=== PATIENT | male | born 1960 | race Caucasian/White ===

== ENCOUNTER 2017-07-29 09:44 | Emergency (ER) | payer OTHER ==
[2017-07-29 09:53] VITALS: BP 155/83
[2017-07-29] MEDS ORDERED: Colchicine 0.6 MG Tab PO ONE (10:20)
[2017-07-29] MEDS ORDERED: Acetaminophen/oxyCODONE 325-5 MG Tab PO ONE (10:21)
[2017-07-29] MEDS ORDERED: predniSONE 20 MG Tab PO ONE (10:21)
[2017-07-29] MEDS ORDERED: Indomethacin 25 MG Cap PO ONE (10:21)
--- NOTE | 2017-07-29 10:27 | EDM.PDOC ---
ED HPI GENERAL MEDICAL PROBLEM - General Chief Complaint: Lower Extremity Injury/Pain Stated Complaint: LEFT KNEE PAIN Time Seen by Provider: 07/29/17 10:15 Source of Information: Reports: Patient, Family History Limitations: Reports: No Limitations - History of Present Illness INITIAL COMMENTS - FREE TEXT/NARRATIVE: 56-year-old male presents the ED with acute onset of severe left knee pain that awoke him from sleep during the night. When he went to bed he felt fine and reports no known trauma or injuries to the knee. Patient is known to have mild to moderate degenerative arthritis in both knees. No previous similar problems. He states it's not bad if he's not moving but if he tries to weight-bear or move the joint it hurts tremendously. Onset: Today Onset Date: 07/29/17 Onset Time: 05:00 Duration: Hour(s): Location: Reports: Lower Extremity, Left Quality: Reports: Ache, Burning Severity: Moderate (Current pain as 7 or 8 out of 10.) Improves with: Reports: None Worsens with: Reports: Movement Context: Denies: Activity (Especially trying to weight-bear), Exercise, Lifting , Sick Contact, Trauma, Other Associated Symptoms: Reports: No Other Symptoms Treatments [employer]: Reports: Acetaminophen Left Knee Pain Score (Numeric/FACES): 1 - Related Data Allergies Allergy/AdvReac Type Severity Reaction Status Date / Time erythromycin base Allergy Hives Verified 07/29/17 09:49 niacin Allergy Itching Verified 07/29/17 09:49 [From Niaspan Extended-Release] atorvastatin [From Lipitor] AdvReac Muscle Verified 07/29/17 09:49 Weakness Home Meds: Home Meds Acetaminophen [Tylenol] 2 tab PO Q6HR PRN 08/08/16 [History] Aspirin [Halfprin] 1 tab PO DAILY 08/08/16 [History] Cholecalciferol (Vitamin D3) [Vitamin D3] 1 tab PO DAILY 08/08/16 [History] Hydrochlorothiazide 1 tab PO DAILY 08/08/16 [History] Insulin Glargine,Hum.Rec.Anlog [Susana Solostbritany] 45 units SQ BEDTIME 08/08/16 [ History] Losartan [Cozaar] 1 tab PO DAILY 08/08/16 [History] Metoprolol Succinate 1 tab PO DAILY 12/20/16 [History] Rosuvastatin Calcium 1 tab PO DAILY 08/08/16 [History] Ubidecarenone [Coq-10] 1 cap PO DAILY 08/08/16 [History] sitaGLIPtin Phos/Metformin HCl [Janumet Xr 50-1,000 mg Tablet] 1 tab PO DAILY [History] Diclofenac Sodium [Voltaren] 50 mg PO TIDMEALS #24 tab.ec 07/29/17 [Rx] Prednisone [IMW: predniSONE] 20 mg PO BID #11 tab 07/29/17 [Rx] oxyCODONE HCl/Acetaminophen [Percocet 5-325 mg Tablet] 1 - 2 each PO Q4H PRN # 16 tablet 07/29/17 [Rx] Past Medical History HEENT History: Reports: Other (See Below) Other HEENT History: nasal obstruction Cardiovascular History: Reports: CAD, High Cholesterol, Hypertension, ID, PTCA Respiratory History: Reports: Sleep Apnea Musculoskeletal History: Reports: Other (See Below) Other Musculoskeletal History: L sciatic pain Endocrine/Metabolic History: Reports: Diabetes, Type II (Controlled with insulin and diet), Obesity/BMI 30+ - Past Surgical History HEENT Surgical History: Reports: Cataract Surgery, Other (See Below) GI Surgical History: Reports: Hernia, Inguinal Social & Family History - Tobacco Use Smoking Status *Q: Former Smoker Used Tobacco, but Quit: No - Recreational Drug Use Recreational Drug Use: No Drug Use in Last 12 Months: No - Living Situation & Occupation Living situation: Reports: Occupation: Employed Review of Systems - Review of Systems Review Of Systems: See Below Constitutional: Reports: No Symptoms Eyes: Reports: No Symptoms Ears: Reports: No Symptoms Nose: Reports: No Symptoms Mouth/Throat: Reports: No Symptoms Respiratory: Reports: No Symptoms Cardiovascular: Reports: No Symptoms, Other (Shortness of breath on exertion.) GI/Abdominal: Reports: Other (Moderate abdominal obesity) Genitourinary: Reports: Other (Urinary frequency with nocturia 3) Musculoskeletal: Reports: Joint Pain Skin: Reports: No Symptoms (Both knees. Left greater than right today.) Neurological: Reports: No Symptoms Psychiatric: Reports: No Symptoms ED EXAM, GENERAL - Physical Exam Exam: See Below Exam Limited By: No Limitations General Appearance: Alert, WD/WN, No Apparent Distress Extremities: Other (Examination of the left knee reveals no true joint effusion. It is slightly swollen laterally. It is very warm to palpation along the lateral aspect of the knee. Movement causes severe pain in any direction. A flexion-extension internal or external rotation. Assessment is acute gouty arthritis or pseudogout.) Psychiatric: Normal Affect Skin Exam: Warm, Dry, Intact, Normal Color, No Rash Course - Vital Signs Last Recorded V/S: Last Vital Signs Temp 36.5 C 07/29/17 09:50 Pulse 80 07/29/17 09:50 Resp BP 155/83 H 07/29/17 09:50 Pulse Ox 95 07/29/17 09:50 - Orders/Labs/Meds Orders: Active Orders 24 hr Category Date Time Status Colchicine [Colcrys] Med 07/29/17 10:30 Active 0.6 mg PO Q1H Medication Orders Colchicine (Colcrys) 0.6 mg PO Q1H LUL Last Admin: 07/29/17 10:37 Dose: 0.6 mg Meds: Medications Generic Name Dose Route Start Last Admin Trade Name Freq PRN Reason Stop Dose Admin Colchicine 0.6 mg 07/29/17 10:30 07/29/17 10:37 Colcrys PO 0.6 mg Q1H LUL Administration Discontinued Medications Generic Name Dose Route Start Last Admin Trade Name Freq PRN Reason Stop Dose Admin Colchicine 0.6 mg 07/29/17 10:20 07/29/17 10:29 Colcrys PO 07/29/17 10:21 0.6 mg ONETIME ONE Administration Indomethacin 50 mg 07/29/17 10:21 07/29/17 10:29 Indocin PO 07/29/17 10:22 50 mg ONETIME ONE Administration Oxycodone/Acetaminophen 2 tab 07/29/17 10:21 07/29/17 10:30 Percocet 325-5 Mg PO 07/29/17 10:22 2 tab ONETIME ONE Administration Prednisone 30 mg 07/29/17 10:21 07/29/17 10:30 Prednisone PO 07/29/17 10:22 30 mg ONETIME ONE Administration - Radiology Interpretation Free Text/Narrative:: 56-year-old male presents to the ED with acute onset of severe left knee pain that started during the night with known with known injuries. Examination reveals increased warmth and tenderness along the lateral aspect of the knee area clinically he has developed either pseudogout or gout deposition in his knee. Patient is obese and suffers from metabolic syndrome. Advised he needs a uric acid checked next time is in the clinic. In the meantime he will be treated with colchicine 0.6 mg 1 every hour for 3 consecutive hours starting in the ED. 3 tablets were provided through the ED. Given indomethacin 50 mg by mouth for anti-inflammatory. Prednisone 30 mg by mouth into Percocet 5/3/25 milligram tablets for acute pain relief. He will go to the drugstore and excelsior picker prednisone 20 mg twice a day with first dose due tonight at supper time and he will use this for 5 days. Placed on Voltaren 50 mg 3 times daily for 8 days to relieve pain and inflammation. Percocet 5/3/25 milligram tablets 16 were provided for pain relief to get him through the next few days until the inflammation comes under control. Follow-up if not markedly improved in 48 hours time Departure - Departure Time of Disposition: 10:22 Disposition: Home, Self-Care 01 Condition: Fair Clinical Impression: Gout attack Qualifiers: Gout site: knee Gout etiology: idiopathic Laterality: left Qualified Code(s): M10.062 - Idiopathic gout, left knee - Discharge Information Prescriptions: Diclofenac Sodium [Voltaren] 50 mg PO TIDMEALS #24 tab.ec oxyCODONE HCl/Acetaminophen [Percocet 5-325 mg Tablet] 1 - 2 each PO Q4H PRN # 16 tablet PRN Reason: pain relief. Prednisone [IMW: predniSONE] 20 mg PO BID #11 tab Instructions: Gout, [id number] Referrals: Ester Shook PA-C [Primary Care Provider] - Forms: ED Department Discharge Additional Instructions: Evaluation in the emergency room this morning in regards to acute onset of severe pain left knee that developed during the night. No known trauma or injury. Examination reveals increased warmth and with signs of inflammation of the lateral aspect of the left knee joint. History and examination are compatible with acute gout attack. Treatment is colchicine 0.6 mg tablet 1 tablet every hour for 3 consecutive hours with the first tablets started in the ED. Next tablet would be due around 11:30 and again at 12:30 today. Indomethacin 50 mg was given in the ED to reduce inflammation. He will need to start Voltaren 50 mg 3 times daily x 8 days with the next tablet due about suppertime tonight. Prednisone 30 mg started in the ED and need to take 20 mg again after supper tonight. This be taken twice daily for the next 5 days again to clear up inflammation. Pain medication Percocet 12/20/24 one or 2 tablets every 4-6 hours needed for pain relief. You should only need this for the next couple of days as the anti-inflammatories will take about 36 hours to kick in well and should relieve over 90% of your pain early rapidly in the next 36 hours. Time urine to see the document major uric acid level checked in your bloodstream. - My Orders Last 24 Hours: My Active Orders 07/29/17 10:30 Colchicine [Colcrys] 0.6 mg PO Q1H - Assessment/Plan Last 24 Hours: My Active Orders 07/29/17 10:30 Colchicine [Colcrys] 0.6 mg PO Q1H
[2017-07-29] MEDS ORDERED: Colchicine 0.6 MG Tab PO SCH (10:30)
== END 2017-07-29 10:40 | disposition home or self-care (01) ==
LOC: JD.ED 09:44
DX: M10.062 Idiopathic gout, left knee (principal); E78.00 Pure hypercholesterolemia, unspecified; I10 Essential (primary) hypertension; Z88.1 Allergy status to other antibiotic agents; Z88.8 Allergy status to other drugs, medicaments and biological substances; Z79.82 Long term (current) use of aspirin; Z79.4 Long term (current) use of insulin; Z79.899 Other long term (current) drug therapy; Z87.891 Personal history of nicotine dependence
CPT/HCPCS: 99283; A9270

== ENCOUNTER 2019-05-10 01:19 | Emergency (ER) | payer OTHER ==
[2019-05-10 01:32] VITALS: BP 151/85; PULSE 82
--- NOTE | 2019-05-10 02:10 | EDM.PDOC ---
ED HPI GENERAL MEDICAL PROBLEM - General Chief Complaint: Lower Extremity Injury/Pain Stated Complaint: SWOLLEN RIGHT HIP Time Seen by Provider: 05/10/19 01:32 Source of Information: Reports: Patient, Family () History Limitations: Reports: No Limitations - History of Present Illness INITIAL COMMENTS - FREE TEXT/NARRATIVE: The patient states that he developed pain to the lateral aspect of his right hip yesterday morning, 05/09/2019. It has progressively gotten worse. Patient is unable to lie on his right side, and he states that it hurts to move his right hip. He denies any injury to the area. No recent fever. No prior similar symptoms. The patient is concerned that his right hip pain may be a gout flare. He has a presumptive diagnosis of gout, although he has only had 2 prior flares; the first to his first MTP, the second to his knee, however, aspiration of either joint was not performed, therefore the diagnosis has not been confirmed. The patient does not take a urea-lowering medication. The patient's PCP is CHINEDU Andersen. His Metal Riveter is Dr. Aron Vazquez. His Orthopedic Surgeon is Dr. Alejandro Fletcher. Right Hip Pain Score (Numeric/FACES): 6 - Related Data Allergies Allergy/AdvReac Type Severity Reaction Status Date / Time erythromycin base Allergy Hives Verified 05/10/19 01:35 niacin Allergy Itching Verified 05/10/19 01:35 [From Niaspan Extended-Release] atorvastatin [From Lipitor] AdvReac Muscle Verified 05/10/19 01:35 Weakness Home Meds: Home Meds Aspirin [Halfprin] 1 tab PO DAILY 08/08/16 [History] Cholecalciferol (Vitamin D3) [Vitamin D3] 1 tab PO DAILY 08/08/16 [History] Hydrochlorothiazide 1 tab PO DAILY 08/08/16 [History] Insulin Glargine,Hum.Rec.Anlog [Toujeo Solostar] 45 units SQ BEDTIME 08/08/16 [ History] Losartan [Cozaar] 1 tab PO DAILY 08/08/16 [History] Metoprolol Succinate 1 tab PO DAILY 08/08/16 [History] Rosuvastatin Calcium 1 tab PO DAILY 08/08/16 [History] Ubidecarenone [Coq-10] 1 cap PO DAILY 08/08/16 [History] sitaGLIPtin Phos/Metformin HCl [Janumet Xr 50-1,000 mg Tablet] 1 tab PO DAILY [History] Past Medical History Cardiovascular History: Reports: CAD, High Cholesterol, Hypertension, [place] (2003) Respiratory History: Reports: Sleep Apnea (nightly CPAP 10) Musculoskeletal History: Reports: Fracture (left ankle), Gout (suspected, not confirmed, untreated), Osteoarthritis (knees) Endocrine/Metabolic History: Reports: Diabetes, Type II, Obesity/BMI 30+ - Past Surgical History HEENT Surgical History: Reports: Cataract Surgery (bilateral) Cardiovascular Surgical History: Reports: Percutaneous Transluminal Angioplasty (coronary, 2003) GI Surgical History: Reports: Hernia, Inguinal (bilateral) Social & Family History - Tobacco Use Smoking Status *Q: Never Smoker - Caffeine Use Caffeine Use: Reports: None - Alcohol Use Alcohol Use History: Yes Alcohol Use Frequency: Socially - Recreational Drug Use Recreational Drug Use: No - Living Situation & Occupation Living situation: Reports: , with Spouse, with Family (1 child) 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 ED EXAM, GENERAL - Physical Exam Exam: See Below Exam Limited By: No Limitations General Appearance: Alert, WD/WN, No Apparent Distress Extremities: Other (Producible tenderness over the right greater trochanter. No tenderness to palpation to the remainder of the right hip.) Course - Vital Signs Last Recorded V/S: Last Vital Signs Temp 36.4 C 05/10/19 01:29 Pulse 82 05/10/19 01:29 Resp 19 05/10/19 01:29 BP 151/85 H 05/10/19 01:29 Pulse Ox 93 L 05/10/19 01:29 - Re-Assessments/Exams Free Text/Narrative Re-Assessment/Exam: 05/10/19 02:05 The patient's history and physical examination are most consistent with greater trochanteric pain syndrome (formerly known as trochanteric bursitis). Since the patient reports no history of trauma, I do not see an indication for x-rays. Treatment options at this time include NSAIDs versus systemic steroids, however , given the patient's history of diabetes, I feel that NSAIDs would be safer, as a systemic steroid would cause his blood glucoses to rise. An alternative treatment would be to have his Orthopedic Surgeon perform a local steroid injection, which would likely give him more prompt relief. If the patient's pain is not improving fairly rapidly, physical therapy is in order. Departure - Departure Time of Disposition: 02:07 Disposition: Home, Self-Care 01 Condition: Good Clinical Impression: Greater trochanteric pain syndrome of right lower extremity - Discharge Information *PRESCRIPTION DRUG MONITORING PROGRAM REVIEWED*: Not Applicable *COPY OF PRESCRIPTION DRUG MONITORING REPORT IN PATIENT SOFI: Not Applicable Referrals: Ester Shook PA-C [Primary Care Provider] - Aron Vazquez MD [Ordering Only Provider] - Alejandro Fletcher MD [Ordering Only Provider] - Additional Instructions: You were seen in the emergency room for pain to the side of your right hip that developed Sunday morning, 05/09/2019. Based on your history and physical examination, you are most likely suffering from greater trochanteric pain syndrome, formally known as trochanteric bursitis. One option is to take an [id number] NSAID, such as ibuprofen, the other option is to take a systemic steroid, however, a systemic steroid will cause your blood sugars to rise. Take [id number] ibuprofen, 3 tablets (600 mg) every 8 hours, with food, [id number]. If you are not getting significant relief within the next few days, please follow-up with your Orthopedic Surgeon, Dr. Alejandro Fletcher, to discuss the option of a local steroid injection into your right greater trochanteric bursa. If you are not having significant relief within a week or so, physical therapy is recommended. If any other problems, please do not hesitate to return to the ER.
== END 2019-05-10 02:20 | disposition home or self-care (01) ==
LOC: JD.ED 01:19
DX: M25.551 Pain in right hip (principal); M79.604 Pain in right leg; E78.00 Pure hypercholesterolemia, unspecified; E11.9 Type 2 diabetes mellitus without complications; I10 Essential (primary) hypertension; I25.2 Old myocardial infarction; E66.9 Obesity, unspecified; Z79.82 Long term (current) use of aspirin; Z79.899 Other long term (current) drug therapy; Z79.4 Long term (current) use of insulin; Z88.1 Allergy status to other antibiotic agents; Z88.8 Allergy status to other drugs, medicaments and biological substances; Z68.42 Body mass index [BMI] 45.0-49.9, adult
CPT/HCPCS: 99283

== ENCOUNTER 2019-09-01 11:00 | Emergency (ER) | payer OTHER ==
[2019-09-01 11:13] VITALS: BP 123/64; PULSE 76
--- NOTE | 2019-09-01 13:03 | CT ---
Head CT Technique: Multiple axial sections through the brain were obtained. Intravenous contrast was not utilized. Comparison: Prior MRI brain of 04/15/13. Findings: Ventricles along with basal cisterns and sulci over the convexities are within normal limits for the patient's age. Questionable diminished density within the middle cerebral artery peduncle on the left side. Difficult to exclude early infarct or ischemic demyelination. No other abnormal parenchymal densities are seen. No evidence of intracranial hemorrhage. No midline shift or mass effect is seen. Bone window settings were reviewed which show no acute disease within the visualized paranasal sinuses. Mastoid sinuses also show nothing acute. Atherosclerotic calcification is seen within the carotid siphon. No acute calvarial abnormality is appreciated. Impression: 1. Questionable low density within the left middle cerebral artery peduncle. Difficult to exclude early infarct or ischemic demyelination. MRI would be confirmatory if needed. 2. No other acute findings are seen on noncontrast head CT study. Diagnostic code #3 This report was dictated in [place] Standard Time
[2019-09-01] MEDS ORDERED: LORazepam 1 MG Tab PO ONE (13:31)
--- NOTE | 2019-09-01 14:06 | EDM.PDOC ---
ED HPI GENERAL MEDICAL PROBLEM - General Chief Complaint: Cardiovascular Problem Stated Complaint: DIZZY Time Seen by Provider: 09/01/19 11:11 Source of Information: Reports: Patient, Family History Limitations: Reports: No Limitations - History of Present Illness INITIAL COMMENTS - FREE TEXT/NARRATIVE: The patient presents with dizziness and lightheadedness. He was at [employer] and he developed some dizziness. He said this felt both like being off balance and lightheaded. He said this did happen once about a week ago. He has no headache, fever, chills, chest pain, abdominal pain or vomiting. He did feel a little nauseated. He has no numbness or weakness. He has no double or blurred vision. He has no ear pain, tinnitus or hearing loss. Onset: Sudden Duration: Minutes: Severity: Moderate Improves with: Reports: None Worsens with: Reports: None Associated Symptoms: Reports: Nausea/Vomiting. Denies: Chest Pain, Cough, Fever /Chills, Headaches, Shortness of Breath - Related Data Allergies Allergy/AdvReac Type Severity Reaction Status Date / Time erythromycin base Allergy Hives Verified 09/01/19 11:13 niacin Allergy Itching Verified 09/01/19 11:13 [From Niaspan Extended-Release] atorvastatin [From Lipitor] AdvReac Muscle Verified 09/01/19 11:13 Weakness Home Meds: Home Meds Aspirin [Halfprin] 1 tab PO DAILY 08/08/16 [History] Cholecalciferol (Vitamin D3) [Vitamin D3] 1 tab PO DAILY 08/08/16 [History] Hydrochlorothiazide 25 mg PO DAILY 08/08/16 [History] Insulin Glargine,Hum.Rec.Anlog [Susana Melo] 56 units SQ BEDTIME 08/08/16 [ History] Losartan [Cozaar] 100 mg PO DAILY 08/08/16 [History] Metoprolol Succinate 100 mg PO DAILY 08/08/16 [History] Rosuvastatin Calcium 40 mg PO DAILY 08/08/16 [History] Ubidecarenone [Coq-10] 60 mg PO DAILY 08/08/16 [History] sitaGLIPtin Phos/Metformin HCl [Janumet Xr 50-1,000 mg Tablet] 1 tab PO BID [History] Meclizine [Antivert] 25 mg PO Q6H PRN #30 tab 01/13/20 [Rx] Past Medical History HEENT History: Reports: Other (See Below) Other HEENT History: nasal obstruction Cardiovascular History: Reports: CAD, High Cholesterol, Hypertension, [place] Respiratory History: Reports: Sleep Apnea Musculoskeletal History: Reports: Fracture, Gout, Osteoarthritis Other Musculoskeletal History: L sciatic pain Endocrine/Metabolic History: Reports: Diabetes, Type II, Obesity/BMI 30+ - Past Surgical History HEENT Surgical History: Reports: Cataract Surgery Cardiovascular Surgical History: Reports: Percutaneous Transluminal Angioplasty GI Surgical History: Reports: Hernia, Inguinal Social & Family History - Tobacco Use Smoking Status *Q: Never Smoker - Caffeine Use Caffeine Use: Reports: None - Recreational Drug Use Recreational Drug Use: No - Living Situation & Occupation Living situation: Reports: , with Spouse, with Family (1 child) 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 Denies: Abdominal Pain, Vomiting : Reports: No Symptoms Musculoskeletal: Reports: No Symptoms Neurological: Reports: Dizziness. Denies: Headache, Numbness, Weakness ED EXAM, GENERAL - Physical Exam Exam: See Below Exam Limited By: No Limitations General Appearance: Alert, No Apparent Distress Eye Exam: Bilateral Eye: Nystagmus Ears: Normal External Exam, Normal Canal, Normal TMs Nose: Normal Inspection Head: Atraumatic, Normocephalic Neck: Normal Inspection Respiratory/Chest: No Respiratory Distress, Lungs Clear, Normal Breath Sounds Cardiovascular: Regular Rate, Rhythm, No Edema, No Murmur GI/Abdominal: Soft, Non-Tender, No Organomegaly, No Mass Back Exam: Normal Inspection Extremities: Normal Inspection Neurological: Alert, Oriented, No Motor/Sensory Deficits EKG INTERPRETATION EKG Date: 09/01/19 Time: 11:32 Rhythm: NSR Rate (Beats/Min): 71 P-Wave: Present QRS: Normal ST-T: Other (Inverted T waves in the inferior leads) QT: Normal Course - Vital Signs Last Recorded V/S: Last Vital Signs Temp 96.7 F 09/01/19 11:08 Pulse 76 09/01/19 11:08 Resp 18 09/01/19 11:08 BP 123/64 09/01/19 11:08 Pulse Ox 95 09/01/19 11:08 - Orders/Labs/Meds Orders: Active Orders 24 hr Category Date Time Status Cardiac Monitoring [RC] . DIRECTED Care 09/01/19 11:23 Active EKG Documentation Completion [RC] STAT Care 09/01/19 11:24 Active Labs: Laboratory Tests 09/01/19 09/01/19 Range/Units 11:39 11:39 WBC 9.69 H (4.23-9.07) K/mm3 RBC 4.98 (4.63-6.08) M/mm3 Hgb 13.8 (13.7-17.5) gm/dl Hct 42.5 (40.1-51.0) % MCV 85.3 (79.0-92.2) fl MCH 27.7 (25.7-32.2) pg MCHC 32.5 (32.2-35.5) g/dl RDW Std Deviation 47.0 H (35.1-43.9) fL Plt Count 177 (163-337) K/mm3 MPV 12.2 (9.4-12.3) fl Neut % (Auto) 70.0 H (34.0-67.9) % Lymph % (Auto) 20.1 L (21.8-53.1) % [place] % (Auto) 6.9 (5.3-12.2) % Eos % (Auto) 2.5 (0.8-7.0) Baso % (Auto) 0.3 (0.1-1.2) % Neut # (Auto) 6.78 H (1.78-5.38) K/mm3 Lymph # (Auto) 1.95 (1.32-3.57) K/mm3 [place] # (Auto) 0.67 (0.30-0.82) K/mm3 Eos # (Auto) 0.24 (0.04-0.54) K/mm3 Baso # (Auto) 0.03 (0.01-0.08) K/mm3 Sodium 141 (136-145) mEq/L Potassium 3.9 (3.5-5.1) mEq/L Chloride 103 (98-107) mEq/L Carbon Dioxide 29 (21-32) mEq/L Anion Gap 12.9 (5-15) BUN 20 H (7-18) mg/dL Creatinine 1.1 (0.7-1.3) mg/dL Est Cr Clr Drug Dosing 68.78 mL/min Estimated GFR (MDRD) > 60 (>60) mL/min BUN/Creatinine Ratio 18.2 H (14-18) Glucose 143 H (74-106) mg/dL Calcium 9.1 (8.5-10.1) mg/dL Total Bilirubin 0.3 (0.2-1.0) mg/dL AST 13 L (15-37) U/L ALT 39 (16-63) U/L Alkaline Phosphatase 36 L (46-116) U/L Troponin I < 0.017 (0.00-0.056) ng/mL Total Protein 7.3 (6.4-8.2) g/dl Albumin 3.8 (3.4-5.0) g/dl Globulin 3.5 gm/dL Albumin/Globulin Ratio 1.1 (1-2) Meds: Medications Discontinued Medications Generic Name Dose Route Start Last Admin Trade Name Cole PRN Reason Stop Dose Admin Lorazepam 1 mg 09/01/19 13:31 09/01/19 13:39 Ativan PO 09/01/19 13:32 1 mg ONETIME ONE Administration Meclizine HCl 25 mg 09/01/19 11:25 09/01/19 11:50 Antivert PO 09/01/19 11:26 25 mg ONETIME ONE Administration - Re-Assessments/Exams Free Text/Narrative Re-Assessment/Exam: 09/01/19 14:06 I ordered an EKG, CT of his head and labs. His EKG shows a NSR with some flipped T waves in the inferior leads. 09/01/19 14:07 His WBC was slightly elevated at 9.69. His glucose was up slightly at 143. His troponin is negative. His CT shows questionable low density within the left middle cerebral artery peduncle. Difficult to exclude early infarct or ischemic demyelination. MRI would be confirmatory if needed. No other acute findings are seen on noncontrast head CT study. I have ordered a MRI of his head. 09/01/19 16:39 The MRI shows no abnormality identified within the left middle cerebral artery peduncle as questioned on recent head CT exam. Head CT finding is therefore felt to be due to beam hardening artifact from the skull base. No acute diffusion abnormalities are seen. Very minimal areas of increased signal within these periventricular white matter most likely representing minimal small vessel ischemic demyelination change. Departure - Departure Time of Disposition: 16:45 Disposition: Home, Self-Care 01 Condition: Good Clinical Impression: Dizziness Prescriptions: Meclizine [Antivert] 25 mg PO Q6H PRN #30 tab PRN Reason: Dizziness Referrals: Ester Shook PA-C [Primary Care Provider] - 1 Week Forms: ED Department Discharge Additional Instructions: Take your medication as prescribed. Take the antivert every 6 hours as needed for dizziness. Please return if you are worse. Sepsis Event Note - Evaluation Sepsis Screening Result: No Definite Risk - Focused Exam Vital Signs: Vital Signs Temp Pulse Resp BP Pulse Ox 09/01/19 11:08 96.7 F 76 18 123/64 95 Date Exam was Performed: 09/01/19 Time Exam was Performed: 16:38 - My Orders Last 24 Hours: My Active Orders 09/01/19 11:23 Cardiac Monitoring [RC] . DIRECTED 09/01/19 11:24 EKG Documentation Completion [RC] STAT - Assessment/Plan Last 24 Hours: My Active Orders 09/01/19 11:23 Cardiac Monitoring [RC] . DIRECTED 09/01/19 11:24 EKG Documentation Completion [RC] STAT
--- NOTE | 2019-09-01 16:32 | MR ---
MRI brain Technique: T1 sagittal; T1 coronal; T2, T2 FLAIR, T1 and diffusion axial Comparison: Prior head CT study performed earlier on the same day (11:44 AM). Prior MRI brain study of 04/15/13 is also available. Findings: Ventricles along with basal cisterns and sulci over the convexities are within normal limits for the patient's age. Normal signal void is seen within the major cerebral arteries within the skull base. No acute diffusion abnormalities are seen. Nothing is seen to correlate to the finding on CT exam within the left middle cerebral peduncle and findings are therefore felt to be artifact. Several minimal areas of increased signal are noted within the periventricular white matter compatible with minimal small vessel ischemic demyelination change. No other abnormal signal is seen within the brain parenchyma. No midline shift or mass effect is seen. Impression: 1. No abnormality identified within the left middle cerebral artery peduncle as questioned on recent head CT exam. Head CT finding is therefore felt to be due to beam hardening artifact from the skull base. 2. No acute diffusion abnormalities are seen. 3. Very minimal areas of increased signal within these periventricular white matter most likely representing minimal small vessel ischemic demyelination change. Diagnostic code #2 This report was dictated in [place] Standard Time
== END 2019-09-01 16:50 | disposition home or self-care (01) ==
LOC: JD.ED 11:00
DX: R42 Dizziness and giddiness (principal); I25.2 Old myocardial infarction; I10 Essential (primary) hypertension; I25.10 Atherosclerotic heart disease of native coronary artery without angina pectoris; E11.9 Type 2 diabetes mellitus without complications; Z79.4 Long term (current) use of insulin; Z79.82 Long term (current) use of aspirin; Z79.899 Other long term (current) drug therapy; E66.9 Obesity, unspecified; Z98.49 Cataract extraction status, unspecified eye
CPT/HCPCS: 36415; 70450; 70551; 80053; 84484; 85025; 93005; 99284; A9270; 93010; 99283

== ENCOUNTER 2021-07-12 07:22 | Day surgery (SDC) | payer OTHER ==
[~2021-07-12 07:22] MED LIST: Lactated Ringers 1,000 ML IV SCH; Lidocaine 1%/Sod Bicarbonate in NS 8.4% 1 ML Syringe IDERM PRN; Sodium Chloride 0.9% 10 ML Syringe FLUSH PRN
--- NOTE | 2021-07-12 07:46 | PCM.PREANE ---
Preanesthetic Assessment - Procedure Proposed Procedure: Colonoscopy - Anesthesia/Transfusion/Family Hx Anesthesia History: Prior Anesthesia Without Reaction Family History of Anesthesia Reaction: No Transfusion History: No Prior Transfusion(s) Intubation History: Unknown - Review of Systems General: No Symptoms Pulmonary: No Symptoms Cardiovascular: No Symptoms Gastrointestinal: No Symptoms Neurological: Headache Other: Reports: Diabetes - Physical Assessment NPO Status Date: 07/10/21 (07/10/21 last solid; finished prep this morning at 0425) NPO Status Time: 22:00 Vital Signs: BP 134/77 HR 89 RR 20 93% RA 97.0 Height: 1.71 m Weight: 129 kg ASA Class: 3 Mental Status: Alert & Oriented x3 Airway Class: Mallampati = 2 Dentition: Reports: Normal Dentition, Caries Thyro-Mental Finger Breadths: 3 Mouth Opening Finger Breadths: 3 ROM/Head Extension: Full Lungs: Clear to Auscultation (Diminshed breath sounds due to obestiy), Normal Respiratory Effort Cardiovascular: Regular Rate, Regular Rhythm, No Murmurs (Distant heart sounds due to obesity) - Lab Values: Labs reviewed and okay to proceed - Imaging/EKG Impressions: EKG 03/25/21: NSR HR 74 borderline T wave abnormality in inferior leads - Allergies Allergies/Adverse Reactions: Allergies Allergy/AdvReac Type Severity Reaction Status Date / Time erythromycin base Allergy Hives Verified 07/11/21 13:08 niacin Allergy Itching Verified 07/11/21 13:08 [From Niaspan Extended-Release] atorvastatin [From Lipitor] AdvReac Muscle Verified 07/11/21 13:08 Weakness - Anesthesia Plan Beta Paul: Metoprolol Med Last Dose Date: 07/12/21 Med Last Dose Time: 06:00 - Acknowledgements Anesthesia Type Planned: MAC Pt an Appropriate Candidate for the Planned Anesthesia: Yes Alternatives and Risks of Anesthesia Discussed w Pt/Guardian: Yes Pt/Guardian Understands and Agrees with Anesthesia Plan: Yes PreAnesthesia Questionnaire HEENT History: Reports: Allergic Rhinitis, Cataract, Other (See Below) Other HEENT History: nasal obstruction, eustachian tube dysfunction, right ear otalgia, pharyngitis, deviated septum Cardiovascular History: Reports: CAD (PCI 2004), High Cholesterol, Hypertension, [place] (2004; angioplasty- no stents) Respiratory History: Reports: Sleep Apnea, Other (See Below) Other Respiratory History: reactive airway disease Gastrointestinal History: Reports: Colon Polyp (adenomatous polyp removed with prior colonoscopy), GERD Other Gastrointestinal History: inguinal hernia Genitourinary History: Reports: Other (See Below) Other Genitourinary History: erectile dysfunction, testicular hypofunction NIGHT STOCKER History: Reports: None Musculoskeletal History: Reports: Fracture, Gout, Osteoarthritis Other Musculoskeletal History: L sciatic pain, right ankle fracture Neurological History: Reports: None Psychiatric History: Reports: Other (See Below) Other Psychiatric History: insomnia Endocrine/Metabolic History: Reports: Diabetes, Type II, Obesity/BMI 30+ Hematologic History: Reports: Anemia Immunologic History: Reports: None Oncologic (Cancer) History: Reports: None Dermatologic History: Reports: Other (See Below) Other Dermatologic History: contact dermatitis, foot fungal infection, left foot ingrown toenail, toe paronchycia, skin lesion - Infectious Disease History Infectious Disease History: Reports: None - Past Surgical History Head Surgeries/Procedures: Reports: None HEENT Surgical History: Reports: Cataract Surgery Other HEENT Surgeries/Procedures: septoplasty, sinus surgery Cardiovascular Surgical History: Reports: Percutaneous Transluminal Angioplasty Respiratory Surgical History: Reports: None GI Surgical History: Reports: Colonoscopy, Hernia, Inguinal Female Surgical History: Reports: None Male Surgical History: Reports: None Endocrine Surgical History: Reports: None Neurological Surgical History: Reports: None Oncologic Surgical History: Reports: None Dermatological Surgical History: Reports: None - SUBSTANCE USE Tobacco Use Status *Q: Never Tobacco User Tobacco Use Within Last Twelve Months: No Second Hand Smoke Exposure: No Days Per Week of Alcohol Use: 0 Number of Drinks Per Day: 0 Total Drinks Per Week: 0 Recreational Drug Use History: No - HOME MEDS Home Medications: Home Meds Aspirin [Halfprin] 1 tab PO DAILY 08/08/16 [History] Cholecalciferol (Vitamin D3) [Vitamin D3] 1 tab PO DAILY 08/08/16 [History] Hydrochlorothiazide 25 mg PO DAILY 08/08/16 [History] Insulin Glargine,Hum.Rec.Anlog [Toujeisono Solostar] 56 units SQ BEDTIME 08/08/16 [History] Losartan [Cozaar] 100 mg PO DAILY 08/08/16 [History] Metoprolol Succinate 100 mg PO DAILY 08/08/16 [History] Rosuvastatin Calcium 40 mg PO DAILY 08/08/16 [History] Ubidecarenone [Coq-10] 50 mg PO DAILY 08/08/16 [History] sitaGLIPtin Phos/Metformin HCl [Janumet Xr 50-1,000 mg Tablet] 1 tab PO BID 08/08/16 [History] Chlorhexidine Gluconate [Peridex 0.12% Rinse] 1 dose PO DAILY 07/11/21 [History] Loratadine [Claritin] 10 mg PO DAILY PRN 07/11/21 [History] - CURRENT (IN HOUSE) MEDS Current Meds: Current Medications Lactated Ringer's (Ringers, Lactated) 1,000 mls @ 125 mls/hr IV ASDIRECTED LUL Stop: 07/12/21 23:00 Lidocaine/Sodium Bicarbonate (Lidocaine 1%/Sod Bicarbonate In Ns 8.4% 1 Ml Syringe) 0.25 ml IDERM ONETIME PRN PRN Reason: Prior to IV Start Stop: 07/12/21 23:00 Sodium Chloride (Sodium Chloride 0.9% 10 Ml Syringe) 10 ml FLUSH ASDIRECTED PRN PRN Reason: Keep Vein Open Stop: 07/12/21 23:00
[2021-07-12] MEDS ORDERED: Midazolam 1 MG/ML 2 ML SDV ONE (08:18)
[2021-07-12] MEDS ORDERED: Propofol 200 MG/20 ML SDV ONE (08:18)
--- NOTE | 2021-07-12 09:09 | PCM.PRNOTE ---
- Free Text/Narrative Note: Date: 07/12/2021 Procedure: screening colonoscopy History: tubular adenoma removed on screening colonoscopy in 2016 Endoscopist: Maximo Sandhu MD Findings: Excellent prep, cecum reached, terminal ileum intubated, single small polyp identified and removed. No significant diverticulosis. Minor internal hemorrhoidal disease. Detailed Report: The patient was taken to the endoscopy suite and placed in left lateral decubitus position. Timeout was performed and monitored anesthesia care was initiated. The anus appeared normal and digital rectal exam was unremarkable. The colonoscope was inserted and advanced to the cecum with ease. The appendiceal orifice was visualized. The terminal ileum was briefly intubated. Prep was excellent. The scope was slowly withdrawn and mucosal surfaces carefully inspected. In the mid transverse colon, a small sessile polyp was identified and this was removed using a hot snare. The specimen was successfully retrieved. No other polyps were identified, and there was no significant diverticular disease. On retroflexion in the rectum, minor internal hemorrhoids were observed. Air was suctioned from the distal colon and rectum prior to withdrawal of the scope. The patient tolerated the procedure well.
[2021-07-12] MEDS ORDERED: Simethicone 80 MG Tab.Chew PO ONE (09:14)
--- NOTE | 2021-07-12 09:14 | PCM48HPAN ---
Post Anesthesia Note - EVALUATION WITHIN 48HRS OF ANESTHETIC Vital Signs in Normal Range: Yes Patient Participated in Evaluation: Yes Respiratory Function Stable: Yes Airway Patent: Yes Cardiovascular Function Stable: Yes Hydration Status Stable: Yes Pain Control Satisfactory: Yes Nausea and Vomiting Control Satisfactory: Yes Mental Status Recovered: Yes
[2021-07-12 09:48] VITALS: BP 131/69; PULSE 73
== END 2021-07-12 09:48 | disposition home or self-care (01) ==
LOC: JD.SDS 07:22
PROVIDERS: ATTEND Surgery
DX: Z12.11 Encounter for screening for malignant neoplasm of colon (principal); D12.3 Benign neoplasm of transverse colon; K64.8 Other hemorrhoids; I25.10 Atherosclerotic heart disease of native coronary artery without angina pectoris; N52.9 Male erectile dysfunction, unspecified; G47.33 Obstructive sleep apnea (adult) (pediatric); M10.9 Gout, unspecified; I10 Essential (primary) hypertension; E78.2 Mixed hyperlipidemia; E66.9 Obesity, unspecified; E11.65 Type 2 diabetes mellitus with hyperglycemia; Z88.8 Allergy status to other drugs, medicaments and biological substances; Z79.82 Long term (current) use of aspirin; Z79.899 Other long term (current) drug therapy; Z79.4 Long term (current) use of insulin; Z98.890 Other specified postprocedural states; Z68.42 Body mass index [BMI] 45.0-49.9, adult
CPT/HCPCS: 00812; 82947; A9270-GY; J2250; J2704; J7120